=== PATIENT | female | born 1960 | race African-American/Black ===

== ENCOUNTER 2019-09-19 18:23 | Emergency (ER) | payer BC, OTHER ==
[~2019-09-19] VITALS: Ht 165.1 cm; Wt 78.5 kg
[2019-09-19 18:30] VITALS: BP 124/81
--- NOTE | 2019-09-19 18:55 | NUR ---
58 Y/O FEMALE AMBULATED FROM LOBBY C/O PELVIC PAIN, ABD PAIN, RT FLANK PAIN, RT ELBOW PAIN, AND STATES "I AM BLEEDING INTERNALLY AND THERE IS ORGAN TISSUE COMING OUT OF MY NOSE". DENIES BLOOD IN STOOL. ABD SOFT, ROUND, NONTENDER TO PALP. BOWEL SOUNDS PRESENT X 4 QUAD. HOB ELEVATED, VSS MEDHX: DM, CERVICAL CANCER, MIGRAINES
--- NOTE | 2019-09-19 18:58 | NUR ---
DR CRAIG EXAMINING PT
--- NOTE | 2019-09-19 19:12 | NUR ---
LAB AT BEDSIDE
--- NOTE | 2019-09-19 19:15 | NUR ---
REPORT GIVEN TO RN, TRANSFER OF CARE AT THIS TIME
--- NOTE | 2019-09-19 19:22 | NUR ---
REPORT RECEIVED FROM MIMI BALTAZAR.
[2019-09-19 19:24] LABS: BASOPHILS % (AUTO) 0.4 % (0.0-2.0); EOSINOPHILS % (AUTO) 0.4 % (0.0-4.0); HEMATOCRIT 39.8 % (36-48); HEMOGLOBIN 13.3 g/dL (12.0-16.0); LYMPHOCYTES # (AUTO) 2.6 K/uL (2.5-16.5); LYMPHOCYTES % (AUTO) 28.4 % (20.5-51.1); MEAN CORPUSCULAR HEMOGLOBIN 32 pg (27-31); MEAN CORPUSCULAR HGB CONC 34 g/dL (33-37); MEAN CORPUSCULAR VOLUME 95.3 fL (80-94); MONOCYTES # (AUTO) 0.8 K/uL (0.8-1.0); MONOCYTES % (AUTO) 9.2 % (1.7-9.3); NEUTROPHILS # (AUTO) 5.5 K/uL (1.8-7.7); NEUTROPHILS % (AUTO) 61.6 % (42.2-75.2); PLATELET COUNT (AUTO) 306 K/uL (140-450); RED BLOOD CELL COUNT(AUTO) 4.17 MIL/uL (4.20-5.40); RED CELL DISTRIBUTION WIDTH 12.6 % (11.6-13.7)
--- NOTE | 2019-09-19 19:25 | NUR ---
PT IN BED RESTING NO FURTHER NEEDS AT THIS TIME. RAILS UP X1. BED LOWEST AND LOCKED.
[2019-09-19 19:42] LABS: ALBUMIN 3.7 g/dL (3.4-5.0); ANION GAP 11.7 (8-16); CARBON DIOXIDE 29.8 mmol/L (21-32); CREATININE 0.9 mg/dL (0.6-1.3); POTASSIUM 3.5 mmol/L (3.5-5.1); PROTHROMBIN TIME 10.4 secs (10.8-13.4); TOTAL BILIRUBIN 0.5 mg/dL (0.0-1.0)
[2019-09-19 20:32] LABS: APPEARANCE,URINE CLEAR (CLEAR); BILIRUBIN,URINE NEGATIVE (NEGATIVE); BLOOD, URINE TRACE-I (NEGATIVE); COLOR,URINE YELLOW (YELLOW); LEUKOCYTE ESTERASE ,URINE TRACE (NEGATIVE); NITRITE, URINE NEGATIVE (NEGATIVE); PH,URINE 5.5 (5.0-9.0); UGLUCOSE NEGATIVE (NEGATIVE)
[2019-09-19 20:45] LABS: RBC,URINE 0-5 /HPF (0-5); WBC,URINE 0-5 /HPF (0-5)
--- NOTE | 2019-09-19 20:48 | NUR ---
Note franklyn in EDM - 09/19/19 at 2048 by [facility] pt states decreased pain from 11/08 to 08/08 and tolerable. no further needs at this time. bed at lowest and locked, rails up x1
--- NOTE | 2019-09-19 21:01 | NUR ---
PT IN BED RESTING COMFORTABLY. NO FURTHER NEEDS AT THIS TIME.
--- NOTE | 2019-09-19 21:01 | NUR ---
DR DENNY AT BEDSIDE.
--- NOTE | 2019-09-19 21:11 | NUR ---
Patient discharged with v/s stable. Written and verbal after care instructions given and explained. Patient verbalized understanding. Ambulatory with steady gait. All questions addressed prior to discharge. Advised to follow up with PMD.
[2019-09-19 21:12] VITALS: BP 122/63
== END 2019-09-19 21:12 | disposition home or self-care (01) ==
LOC: MED 18:23
DX: R04.0 Epistaxis (principal); Z90.710 Acquired absence of both cervix and uterus
CPT/HCPCS: 36415; 80053; 81001; 81002; 81025; 82948; 85025; 85610; 85730; 99283